=== PATIENT | male | born 2000 | race Caucasian/White ===

== ENCOUNTER 2019-11-29 22:22 | Emergency (ER) | payer OTHER ==
[~2019-11-29] VITALS: Ht 175.2 cm; Wt 68.0 kg
[2019-11-29 23:21] LABS: BASO % 0.5 % (0.0-1.0); EOS # 0.2 10*3/uL (0.0-0.4); EOS % 2.5 % (1.0-4.0); HEMATOCRIT 40.7 % (42.0-52.0); HEMOGLOBIN 13.8 g/dl (14.0-18.0); LYMPH % 36.7 % (27.0-41.0); MEAN CORPUSCULAR HGB 30.5 pg (27.0-31.0); MEAN CORPUSCULAR HGB CONC 33.9 g/dl (33.0-37.0); MEAN PLATELET VOLUME 11.9 fl (9.6-12.3); MONO # 0.7 10*3/uL (0.1-1.0); MONO % 9.1 % (3.0-9.0); NEUT # 4.2 10*3/uL (2.3-7.9); PLATELET COUNT AUTOMATED 197 10*3/uL (130-400); RED BLOOD COUNT 4.52 10*6/uL (4.50-5.90); RED CELL DISTRI WIDTH 11.6 % (0-14.5); WHITE BLOOD COUNT 8.2 10*3/uL (4.8-10.8)
[2019-11-29 23:36] LABS: ALBUMIN 3.8 gm/dl (3.1-4.5); ALKALINE PHOSPHATASE 69 U/L (45-117); BUN 14 mg/dl (7-24); CHLORIDE 109 mmol/L (98-107); CREATININE 1.06 mg/dL (0.70-1.30); POTASSIUM 3.9 mmol/L (3.5-5.1); SGOT/AST 9 IU/L (3-35); SGPT/ALT 16 U/L (12-78); SODIUM 142 mmol/L (136-145); TOTAL PROTEIN 6.8 gm/dL (6.4-8.2)
[2019-11-30 01:38] LABS: BILIRUBIN NEGATIVE (NEGATIVE); BLOOD NEGATIVE (NEGATIVE); CLARITY SL CLOUDY (CLEAR); COLOR YELLOW (YELLOW); GLUCOSE NEGATIVE (NEGATIVE); KETONE NEGATIVE (NEGATIVE); LEUKO ESTERASE NEGATIVE (NEGATIVE); NITRITE NEGATIVE (NEGATIVE); UROBILINOGEN 0.2 E.U./dl (0.2-1.0)
[2019-11-30 01:44] LABS: MUCOUS TRACE; RBC 0-2 rbc/hpf (0-2); WBC 0-2 wbc/hpf (0-5)
== END 2019-11-30 01:59 | disposition home or self-care (01) ==
LOC: ED 22:22
PROVIDERS: Emergency Medicine Emergency Medical Services
DX: E86.0 Dehydration (principal); R53.83 Other fatigue

== ENCOUNTER 2020-07-23 07:03 | Emergency (ER) | payer OTHER ==
[~2020-07-23] VITALS: Wt 68.0 kg
[2020-07-23 07:41] LABS: BASO % 0.3 % (0.0-1.0); EOS # 0.1 10*3/uL (0.0-0.4); EOS % 1.5 % (1.0-4.0); HEMATOCRIT 39.3 % (42.0-52.0); LYMPH # 2.8 10*3/uL (1.3-4.4); LYMPH % 32.4 % (27.0-41.0); MEAN CELL VOLUME 88.3 fl (80.0-94.0); MEAN CORPUSCULAR HGB 29.7 pg (27.0-31.0); MEAN CORPUSCULAR HGB CONC 33.6 g/dl (33.0-37.0); MONO # 0.7 10*3/uL (0.1-1.0); MONO % 8.4 % (3.0-9.0); NEUT # 4.9 10*3/uL (2.3-7.9); NEUT % 57.2 % (47.0-73.0); PLATELET COUNT AUTOMATED 195 10*3/uL (130-400); RED BLOOD COUNT 4.45 10*6/uL (4.50-5.90); RED CELL DISTRI WIDTH 11.6 % (0-14.5); WHITE BLOOD COUNT 8.7 10*3/uL (4.8-10.8)
[2020-07-23 08:10] LABS: ALBUMIN 3.7 gm/dl (3.1-4.5); ALKALINE PHOSPHATASE 70 U/L (45-117); BUN 16 mg/dl (7-24); CHLORIDE 114 mmol/L (98-107); CREATININE 1.01 mg/dL (0.70-1.30); LIPASE 213 U/L (73-393); POTASSIUM 3.9 mmol/L (3.5-5.1); SGOT/AST 13 IU/L (3-35); SGPT/ALT 15 U/L (12-78); SODIUM 144 mmol/L (136-145); TOTAL PROTEIN 6.8 gm/dL (6.4-8.2)
[2020-07-23 08:58] LABS: BILIRUBIN Negative (Negative); BLOOD Negative (Negative); CLARITY Clear (Clear); COLOR Yellow (Yellow); GLUCOSE Negative (Negative); KETONE Negative (Negative); LEUKO ESTERASE Negative (Negative); NITRITE Negative (Negative); SPECIFIC GRAVITY >= 1.030 (1.001-1.030)
[2020-07-23 09:07] LABS: BACTERIA 2+; EPITHELIAL CELLS 0-2; MUCOUS TRACE; RBC 0-2 rbc/hpf (0-2); WBC 0-2 wbc/hpf (0-5)
[2020-07-23] MEDS ORDERED: ZOFRAN4 MG PO (09:22)
== END 2020-07-23 09:23 | disposition home or self-care (01) ==
LOC: ED 07:03
PROVIDERS: Emergency Medicine
DX: R11.0 Nausea (principal)

== ENCOUNTER 2021-09-18 20:02 | Emergency (ER) | payer OTHER ==
[~2021-09-18] VITALS: Ht 175.2 cm; Wt 63.5 kg
[~2021-09-18 20:02] MED LIST: ZOFRAN4 MG PO
== END 2021-09-18 21:18 | disposition home or self-care (01) ==
LOC: ED 20:02
DX: S05.02XA Injury of conjunctiva and corneal abrasion without foreign body, left eye, initial encounter (principal); X58.XXXA Exposure to other specified factors, initial encounter; Y93.89 Activity, other specified; Y92.89 Other specified places as the place of occurrence of the external cause; Y99.9 Unspecified external cause status

== ENCOUNTER 2021-11-15 17:47 | Emergency (ER) | payer OTHER ==
[~2021-11-15] VITALS: Ht 175.2 cm; Wt 63.5 kg
[2021-11-15] MEDS ORDERED: CEPHALEXIN500 M1 PO (19:49)
== END 2021-11-15 20:04 | disposition home or self-care (01) ==
LOC: ED 17:47
DX: S81.011A Laceration without foreign body, right knee, initial encounter (principal); W45.8XXA Other foreign body or object entering through skin, initial encounter; Y93.89 Activity, other specified; Y92.89 Other specified places as the place of occurrence of the external cause; Y99.8 Other external cause status

== ENCOUNTER 2022-07-17 20:26 | Emergency (ER) | payer OTHER ==
[~2022-07-17] VITALS: Wt 59.0 kg
[~2022-07-17 20:26] MED LIST changes: +CEPHALEXIN500 M1 PO
== END 2022-07-17 23:03 | disposition home or self-care (01) ==
LOC: ED 20:26
DX: G43.909 Migraine, unspecified, not intractable, without status migrainosus (principal)

== ENCOUNTER 2023-04-15 04:44 | Emergency (ER) | payer OTHER ==
[~2023-04-15] VITALS: Ht 175.2 cm; Wt 65.8 kg
[2023-04-15] MEDS ORDERED: ESCITALOPRAM OX10 MG PO (04:54)
== END 2023-04-15 06:10 | disposition home or self-care (01) ==
LOC: ED 04:44
DX: F41.9 Anxiety disorder, unspecified (principal); R07.89 Other chest pain; R06.02 Shortness of breath; G43.909 Migraine, unspecified, not intractable, without status migrainosus

== ENCOUNTER 2023-12-03 11:16 | Emergency (ER) | payer BC ==
[~2023-12-03] VITALS: Ht 175.2 cm; Wt 61.2 kg
[~2023-12-03 11:16] MED LIST changes: +ESCITALOPRAM OX10 MG PO
[2023-12-03] MEDS ORDERED: AMOX-CLAV 875-1 EACH PO (11:39)
== END 2023-12-03 11:51 | disposition home or self-care (01) ==
LOC: ED 11:16
DX: J02.9 Acute pharyngitis, unspecified (principal); F41.9 Anxiety disorder, unspecified; G43.909 Migraine, unspecified, not intractable, without status migrainosus